=== PATIENT | female | born 1965 | race Caucasian/White ===

== ENCOUNTER → 2018-01-20 | Outpatient (CLI) | payer OTHER ==
--- NOTE | 2018-01-20 12:57 | WOMENS IMAGING REPORT ---
EXAM DESCRIPTION: BILAT SCREENING MAMMO W/CAD COMPLETED DATE/TIME: 01/20/2018 8:20 am REASON FOR STUDY: SCREENING MAMMO Z12.31 ENCNTR SCREEN MAMMOGRAM FOR MALIGNANT NEOPLASM OF [place] COMPARISON: 2014 TECHNIQUE: Standard craniocaudal and mediolateral oblique views of each breast recorded using digita l acquisition. LIMITATIONS: None. FINDINGS: No masses, calcifications or architectural distortion. No areas of suspicion. Read with the assistance of CAD. .[facility] - R2 Cenova Version 1.3 .[facility] Imaging - R2 Cenova Version 1.3 .[facility] - R2 Cenova Version 2.4 .[facility] [place] R2 Cenova Version 2.4 .[facility] - R2 Rfid Technician Version 9.2 IMPRESSION: NORMAL MAMMOGRAM. BIRADS 1. BREAST DENSITY: b. There are scattered areas of fibroglandular density. BIRAD: 1 NEGATIVE RECOMMENDATION: ROUTINE SCREENING COMMENT: The patient has been notified of the results by letter per SA requirements. Additional no tification policies are in place for contacting patient with suspicious or incomplete findings. Quality ID #[id number]: The [employer] recommends an annual screening mammogram for women aged 40 years or over. This facility utilizes a reminder system to ensure that all patients receive reminder letters, and/or direct phone calls for appointments. This includes reminders for routine scr eening mammograms, diagnostic mammograms, or other Breast Imaging Interventions when appropriate. Th is patient will be placed in the appropriate reminder system. The [employer] (ACR) has developed recommendations for screening MRI of the breast s in certain patient populations, to be used in conjunction with mammography. Breast MRI surveillanc e may be appropriate for women with more than 20% lifetime risk of developing breast cancer as deter mined by genetic testing, significant family history of the disease, or history of mantle radiation f or Hodgkins Disease. ACR Practice Guidelines 2008. TECHNICAL DOCUMENTATION: FINDING NUMBER: (1) ASSESSMENT: (1) JOB ID: [id number] [employer]- All Rights Reserved Reading location - IP/workstation name: [email or web address]
== END ==
LOC: WI 07:45
PROVIDERS: ATTEND Family Medicine
DX: Z12.31 Encounter for screening mammogram for malignant neoplasm of breast (principal)
CPT/HCPCS: 77067

== ENCOUNTER 2018-07-30 00:04 | Inpatient (IN) | payer OTHER ==
[2018-07-30] MEDS ORDERED: MORPHINE SULFATE 10 MG/ML INJ IV ONE (00:53)
[2018-07-30] MEDS ORDERED: NORMAL SALINE 1000 ML 1,000 ML IV ONE ×2 (00:53→00:58)
[2018-07-30] MEDS ORDERED: ONDANSETRON HCL INJ/PF 4 MG/2 ML SDV IV ONE (00:53)
--- NOTE | 2018-07-30 00:54 | ER Document Report ---
ED General - General Chief Complaint: Abdominal Pain Stated Complaint: SHOULDER/BACK PAIN Time Seen by Provider: 07/30/18 00:43 TRAVEL OUTSIDE OF THE [place] IN LAST 30 DAYS: No - HPI Patient complains to provider of: Abdominal pain Notes: Patient coming in today for right upper quadrant abdominal pain epigastric pain right shoulder blade pain. Patient states ongoing intermittently for a week. Is been evaluated by her primary care physician had H. pylori testing done EGD colonoscopy done approximately 1 year ago all been negative. Patient states recently just started back on her Nexium has only taken 2 doses. Patient also states that had a bowel movement in the last 4 days. Patient currently is on oxycodone prescribed by her primary care physician patient has a CT scan scheduled for 11:00 today however pain worse tonight therefore came to ER for further evaluation denies any nausea vomiting fever chills patient states that she still is passing gas. Approximately 1 year ago did have hysterectomy and a bladder sling performed. Patient does have a history of diabetes hypertension. - Related Data Allergies/Adverse Reactions: nortriptyline [Nortriptyline] Allergy (Verified 06/15/14 21:42) Past Medical History - Social History Smoking Status: Unknown if Ever Smoked Family History: Reviewed & Not Pertinent - Past Medical History Cardiac Medical History: Reports: Hx Hypercholesterolemia, Hx Hypertension Review of Systems - Review of Systems Constitutional: No symptoms reported EENT: No symptoms reported Cardiovascular: No symptoms reported Respiratory: No symptoms reported Gastrointestinal: Abdominal pain Genitourinary: No symptoms reported Female Genitourinary: No symptoms reported Musculoskeletal: No symptoms reported Skin: No symptoms reported Hematologic/Lymphatic: No symptoms reported Neurological/Psychological: No symptoms reported -: Yes All other systems reviewed and negative Physical Exam - Vital signs Vitals: Temp Pulse Resp BP Pulse Ox 97.6 F 86 18 185/77 H 97 07/30/18 00:12 07/30/18 00:12 07/30/18 00:12 07/30/18 00:12 07/30/18 00:12 Interpretation: Normal - General General appearance: Appears well, Alert - HEENT Head: Normocephalic, Atraumatic Eyes: Normal Pupils: PERRL - Respiratory Respiratory status: No respiratory distress Chest status: Nontender Breath sounds: Normal Chest palpation: Normal - Cardiovascular Rhythm: Regular Heart sounds: Normal auscultation Murmur: No - Abdominal Inspection: Normal Distension: No distension Bowel sounds: Normal Tenderness: Tender - Mild right upper quadrant epigastric tenderness no guarding or rebound. No: McBurney's point, Jackson's sign, Guarding, Rebound Organomegaly: No organomegaly - Back Back: Normal, Nontender - Extremities General upper extremity: Normal inspection, Nontender, Normal color, Normal ROM , Normal temperature General lower extremity: Normal inspection, Nontender, Normal color, Normal ROM , Normal temperature, Normal weight bearing. No: Светлана's sign - Neurological Neuro grossly intact: Yes Cognition: Normal Orientation: AAOx4 [place] Coma Scale Eye Opening: Spontaneous Randi Coma Scale Verbal: Oriented Randi Coma Scale Motor: Obeys Commands [place] Coma Scale Total: 15 Speech: Normal Motor strength normal: LUE, RUE, LLE, RLE Sensory: Normal - Psychological Associated symptoms: Normal affect, Normal mood - Skin Skin Temperature: Warm Skin Moisture: Dry Skin Color: Normal Course - Re-evaluation Re-evalutation: 07/30/18 00:57 Examination of the patient reveals right upper quadrant epigastric tenderness. History is concerning for possible gallbladder disease versus underlying gastritis. Because the patient's complaint of not having a bowel movement last 4 days we will also get a single view of the abdomen to look for stool burden. Ultrasound has been ordered we will go ahead and have the patient start drinking oral contrast 07/30/18 01:39 KUB the patient does show moderate stool burden. Patient tolerating oral contrast without difficulty 07/30/18 03:42 Workup is consistent with possible gallstone pancreatitis. Initially discussed case with the hospital staff requesting surgical condition. Discussed with the surgical list Dr. Perales requesting a CAT scan to go ahead and be performed. 07/30/18 06:04 CAT scans not show any other acute pathology other than cholelithiasis. Daughter still at bedside to evaluate the patient for admission. - Vital Signs Vital signs: Temp Pulse Resp BP Pulse Ox 97.6 F 86 18 185/77 H 97 07/30/18 00:12 07/30/18 00:12 07/30/18 00:12 07/30/18 00:12 07/30/18 00:12 - Laboratory Result Diagrams: 07/30/18 01:57 10 01:57 Laboratory results interpreted by me: 07/30/18 01:57 Glucose 171 H Alkaline Phosphatase 127 H Lipase 1790.2 H Discharge - Discharge Clinical Impression: Gallstone pancreatitis Condition: Good Disposition: ADMITTED INPATIENT Admitting Provider: Surgicalist - [facility] Admitted: Surgical Floor
--- NOTE | 2018-07-30 01:19 | RADIOLOGY REPORT (SQ) ---
EXAM DESCRIPTION: XR ABDOMEN 1 VIEW (KUB) COMPLETED DATE/TME: 07/30/2018 00:53 CLINICAL HISTORY: 53 years, Female, abd pain constipation RUQ pain COMPARISON: None. NUMBER OF VIEWS: One TECHNIQUE: AP view the abdomen LIMITATIONS: None. FINDINGS: Bowel gas pattern is normal. There is a moderate amount stool within the colon. There are no abnormal calcifications. Phleboliths are noted within the pelvis. There is no acute fracture. IMPRESSION: Nonobstructing bowel gas pattern 2010 [employer]- All Rights Reserved
[2018-07-30 02:22] LABS: ABSOLUTE EOSINOPHILS # (AUTO) 0.1 10^3/uL (0.0-0.6); ABSOLUTE LYMPHOCYTES (AUTO) 2.6 10^3/uL (0.5-4.7); ABSOLUTE MONOCYTES (AUTO) 0.6 10^3/uL (0.1-1.4); ABSOLUTE NEUT (AUTO) 4.5 10^3/uL (1.7-8.2); BASOPHILS % (AUTO) 0.5 % (0-2); EOSINOPHILS % (AUTO) 1.5 % (0-6); HEMATOCRIT 38.3 % (36.0-47.0); HEMOGLOBIN 13.4 g/dL (12.0-15.5); LYMPHOCYTES % (AUTO) 33.3 % (13-45); MEAN CORPUSCULAR HEMOGLOBIN 28.5 pg (27.0-33.4); MEAN CORPUSCULAR HGB CONC 35.1 g/dL (32.0-36.0); MEAN CORPUSCULAR VOLUME 81 fl (80-97); MONOCYTES % (AUTO) 7.1 % (3-13); PLATELET COUNT 441 10^3/uL (150-450); RED BLOOD COUNT 4.71 10^6/uL (3.72-5.28); RED CELL DISTRIBUTION WIDTH 12.7 % (11.5-14.0); SEGMENTED NEUTROPHILS % (AUTO) 57.6 % (42-78); TOTAL CELLS COUNTED % (AUTO) 100 %; WHITE BLOOD COUNT 7.8 10^3/uL (4.0-10.5)
[2018-07-30 02:34] LABS: ALANINE AMINOTRANSFERASE 26 U/L (9-52); ALBUMIN 3.8 g/dL (3.5-5.0); ALKALINE PHOSPHATASE 127 U/L (38-126); ANION GAP 12 (5-19); ASPARTATE AMINO TRANSFERASE 18 U/L (14-36); BILIRUBIN,DIRECT 0.2 mg/dL (0.0-0.4); BILIRUBIN,TOTAL 0.4 mg/dL (0.2-1.3); BLOOD UREA NITROGEN 10 mg/dL (7-20); CALCIUM 9.3 mg/dL (8.4-10.2); CARBON DIOXIDE 26 mmol/L (22-30); CHLORIDE 103 mmol/L (98-107); GLUCOSE 171 mg/dL (75-110); LIPASE 1790.2 U/L (23-300); POTASSIUM 4.1 mmol/L (3.6-5.0); SODIUM 140.9 mmol/L (137-145); TOTAL PROTEIN 7.5 g/dL (6.3-8.2)
[2018-07-30 02:42] LABS: APPEARANCE,URINE CLEAR; BILIRUBIN,URINE NEGATIVE (NEGATIVE); GLUCOSE, URINE NEGATIVE (NEGATIVE); KETONES,URINE NEGATIVE (NEGATIVE); LEUKOCYTE ESTERASE,URINE NEGATIVE (NEGATIVE); NITRITE,URINE NEGATIVE (NEGATIVE); PROTEIN,URINE NEGATIVE (NEGATIVE); URINE SPECIFIC GRAVITY 1.004; UROBILINOGEN,URINE NEGATIVE mg/dL (<2.0)
[2018-07-30 02:43] LABS: COLOR,URINE YELLOW
--- NOTE | 2018-07-30 03:03 | RADIOLOGY REPORT (SQ) ---
Ultrasound right upper quadrant on 07/30/2018 at 2:10 AM CLINICAL INDICATION: Right upper quadrant pain COMPARISON: None FINDINGS: Multiple sonographic images are obtained throughout the right upper quadrant, both transverse and sagittal images are obtained. Visualized pancreas is unremarkable. Visualized liver is homogeneous without focal lesion or evidence of intrahepatic biliary ductal dilatation. Common duct measures 5 mm which is within normal limits mitigating against obstruction of the biliary tree. There are multiple small echogenic foci with posterior shadowing in the gallbladder consistent with multiple gallstones. No gallbladder wall thickening or pericholecystic fluid is noted. Right kidney shows no hydronephrosis. No free fluid is noted in the right upper quadrant. IMPRESSION: Cholelithiasis, otherwise unremarkable.
--- NOTE | 2018-07-30 04:19 | RADIOLOGY REPORT (SQ) ---
EXAM DESCRIPTION: CT ABDOMEN PELVIS WITH IV CONTRAST COMPLETED DATE/TME: 07/30/2018 00:00 CLINICAL HISTORY: 53 years, Female, RUQ pain epigastric pain COMPARISON: None. TECHNIQUE: Axial CT images of the abdomen and pelvis were obtained after the administration of IV and oral contrast. DLP 1252 Images stored on PACS. All CT scanners at this facility use dose modulation, iterative reconstruction, and/or weight based dosing when appropriate to reduce radiation dose to as low as reasonably achievable (ALARA). [facility]: Dose Right [facility]: CareDose [facility]: Dose Right [facility]: Teradose 4D [facility]: [employer] Technologies LIMITATIONS: None. FINDINGS: The lung bases are clear. Cholelithiasis. The liver, pancreas, spleen, and adrenal glands are normal. There is a 2 mm nonobstructing stone within the right kidney. There is no evidence of hydronephrosis or hydroureter bilaterally. There is no intraperitoneal free air or fluid. There is no lymphadenopathy. The abdominal aorta is normal in caliber. The stomach and small bowel are unremarkable. The appendix is normal. The colon contains a moderate amount of stool. There are changes of a hysterectomy. There is a 3.2 x 3.3 cm left adnexal cyst. The urinary bladder is unremarkable. There are no lytic or blastic bone lesions. IMPRESSION: Cholelithiasis. Nonobstructing right-sided nephrolithiasis. Left adnexal cyst. Recommend further evaluation with a pelvic ultrasound TECHNICAL DOCUMENTATION: Quality ID # 436: Final reports with documentation of one or more dose reduction techniques (e.g., Automated exposure control, adjustment of the mA and/or kV according to patient size, use of iterative reconstruction technique) 2010 [employer]- All Rights Reserved
[2018-07-30] MEDS ORDERED: ONDANSETRON HCL INJ/PF 4 MG/2 ML SDV IV PRN ×2 (05:57→10:00)
[2018-07-30] MEDS ORDERED: DEXTROSE 40% GEL 15 GM TUBE PO PRN ×3 (05:57→11:30)
[2018-07-30] MEDS ORDERED: GLUCAGON,HUMAN RECOMB 1 MG INJ SUBCUT PRN (05:57)
[2018-07-30] MEDS ORDERED: DEXTROSE 50%-WATER 25 GM/50 ML DISP.SYRIN IV PRN ×2 (05:57)
[2018-07-30] MEDS ORDERED: HYDROMORPHONE HCL INJ/PF 2 MG/ML AMPULE IV PRN (06:03)
[2018-07-30] MEDS: NORMAL SALINE 1000 ML 1,000 ML IV PRN ×3 (07:00→21:20)
--- NOTE | 2018-07-30 07:39 | PDOC H&P ---
History of Present Illness Admission Date/PCP: 07/30/18 05:36 ALIS ZAPATA MD Patient complains of: Back pains and abdominal pains History of Present Illness: PENELOPE STANFORD is a 53 year old female who suddenly c/o right back pains radiating ro the upper abdomen a week ago associated with nausea. She took some leftover po narcotic whigh help her get some relief. She went to her PMD and was seen by CONTRACT ATTORNEY who told her she has muscle pains, She then went to the [facility] but they were so busy that she just went home or sent home after waiting several hours. Last night her pains got worse and went to ED. Past Medical History Cardiac Medical History: Reports: Hyperlipidema, Hypertension Endocrine Medical History: Reports: Diabetes Mellitus Type 2 Psychiatric Medical History: Reports: Depression Hematology: Reports: Anemia - intermittent periods Past Surgical History Past Surgical History: Reports: Hysterectomy Social History Smoking Status: Unknown if Ever Smoked - Advance Directive Resuscitation Status: Full Code Family History Family History: Reviewed & Not Pertinent Parental Family History Reviewed: Yes Children Family History Reviewed: No Sibling(s) Family History Reviewed.: Yes - all 6 siblings had gallbladder sugery and she is the last and 7th sibling Medication/Allergy Home Medications: Esomeprazole Magnesium [Nexium 24Hr] 40 mg PO DAILY 07/30/18 Liraglutide [Victoza 2-Victorino] 1.8 mg SQ WSUPPER 07/30/18 Lisinopril [Prinivil 10 mg Tablet] 10 mg PO DAILY 07/30/18 Metformin HCl [Metformin HCl ER] 500 mg PO BID 07/30/18 Allergies/Adverse Reactions: nortriptyline [Nortriptyline] Allergy (Verified 06/15/14 21:42) Review of Systems Constitutional: PRESENT: as per HPI, chills Eyes: PRESENT: other - no visual/hearing changes Cardiovascular: PRESENT: other - no chest pains/cough Gastrointestinal: PRESENT: abdominal pain, constipation - for 5 days now, nausea Genitourinary: PRESENT: other - no dysuria Musculoskeletal: PRESENT: back pain Neurological: PRESENT: other - no seizures Allergic/Immunologic: PRESENT: seasonal rhinorrhea Physical Exam Vital Signs: Temp Pulse Resp BP Pulse Ox 98.3 F 82 14 130/80 H 98 07/30/18 06:49 07/30/18 06:49 07/30/18 06:49 07/30/18 06:49 07/30/18 06:49 Intake & Output 07/29/18 07/30/18 07/31/18 06:59 06:59 06:59 Weight 67.1 kg General appearance: PRESENT: mild distress Head exam: PRESENT: atraumatic Eye exam: PRESENT: conjunctiva pink Mouth exam: PRESENT: moist Neck exam: PRESENT: full ROM Respiratory exam: PRESENT: clear to auscultation shanika Cardiovascular exam: PRESENT: RRR Pulses: PRESENT: normal radial pulses Vascular exam: PRESENT: normal capillary refill GI/Abdominal exam: PRESENT: soft, tenderness - upper abdomen Rectal exam: PRESENT: deferred Extremities exam: PRESENT: full ROM Musculoskeletal exam: PRESENT: ambulatory Neurological exam: PRESENT: alert, oriented to person, oriented to place, oriented to time, oriented to situation Psychiatric exam: PRESENT: appropriate affect Skin exam: PRESENT: normal color, warm Results Impressions: Abdomen/Pelvis CT 07/30/18 00:00 IMPRESSION: Cholelithiasis. Nonobstructing right-sided nephrolithiasis. Left adnexal cyst. Recommend further evaluation with a pelvic ultrasound TECHNICAL DOCUMENTATION: Quality ID # 436: Final reports with documentation of one or more dose reduction techniques (e.g., Automated exposure control, adjustment of the mA and/or kV according to patient size, use of iterative reconstruction technique) 2010 [employer]- All Rights Reserved Abdomen Ultrasound 07/30/18 00:52 IMPRESSION: Cholelithiasis, otherwise unremarkable. KUB X-Ray 07/30/18 00:53 IMPRESSION: Nonobstructing bowel gas pattern 2010 [employer]- All Rights Reserved Assessment & Plan - Time Time Spent: 30 to 50 Minutes - Inpatient Certification Medical Necessity: Need For IV Fluids, Need for Pain Control, Need for Surgery - Plan Summary Plan Summary: Hospitalist consult for DM Keep NPO Hydrate Pain mx Monitor labs Eventual Lap cecilia when lipase trending down and symptoms improving
[2018-07-30] MEDS: HYDROMORPHONE HCL INJ/PF 2 MG/ML AMPULE IV PRN (10:00)
[2018-07-30] MEDS ORDERED: KETOROLAC TROMETHAMINE INJ/PF 30 MG/1 ML SDV IV PRN (11:29)
[2018-07-30] MEDS ORDERED: DEXTROSE 50%-WATER SYRINGE 12.5 GM/25 ML DOSE IV PRN (11:30)
[2018-07-30] MEDS ORDERED: GLUCAGON,HUMAN RECOMB 1 MG INJ IM PRN (11:30)
[2018-07-30] MEDS ORDERED: DEXTROSE 50%-WATER SYRINGE 25 GM/50 ML DOSE IV PRN (11:30)
[2018-07-30] MEDS ORDERED: DEXTROSE 40% GEL 15 GM TUBE X 2 PO PRN (11:30)
[2018-07-30] MEDS ORDERED: INSULIN LISPRO 100 UNIT/ML 3 ML VIAL SUBCUT PRN (12:00)
[2018-07-30] MEDS ORDERED: INSULIN LISPRO 100 UNIT/ML 3 ML VIAL SUBCUT SCH (12:00)
[2018-07-30] MEDS: FAMOTIDINE INJ/PF 20 MG/2 ML SDV IV SCH ×2 (12:03→21:22)
--- NOTE | 2018-07-30 15:13 | PDOC CONSULTATION ---
Consultation Consult Date: 07/30/18 Attending physician:: LUIS CUMMINGS Consult reason:: Management of DM perioperatively History of Present Illness Admission Date/PCP: 07/30/18 05:36 ALIS ZAPATA MD History of Present Illness: PENELOPE STANFORD is a 53 year old female This patient presents to the emergency room with complaint of right back pain as well as left-sided pain with radiation to the back associated with nausea. This had been going on for about a week. She was seen in the emergency room last night and finally diagnosed with an acute pancreatic cholecystitis. Medical consultation is requested for management of her diabetes. Patient complaining of back pain as well as right upper quadrant pain which is minimally relieved with narcotics. She states that she actually felt better and had some relief when she took some Aleve. She states she is normally compliant with her Metformin which she takes as outpatient. As she is currently n.p.o. in hospital and her blood sugar is well controlled at less than 200. Past Medical History Cardiac Medical History: Reports: Hyperlipidema, Hypertension Endocrine Medical History: Reports: Diabetes Mellitus Type 2 Psychiatric Medical History: Reports: Depression Hematology: Reports: Anemia - intermittent periods Past Surgical History Past Surgical History: Reports: Hysterectomy Social History Information Source: Patient Smoking Status: Unknown if Ever Smoked Frequency of Alcohol Use: None Hx Recreational Drug Use: No Drugs: None Hx Prescription Drug Abuse: No - Advance Directive Resuscitation Status: Full Code Family History Family History: Malignancy Parental Family History Reviewed: Yes Children Family History Reviewed: Yes Sibling(s) Family History Reviewed.: Yes - Sister of pancreatic cancer Medication/Allergy Home Medications: Esomeprazole Magnesium [Nexium 24Hr] 40 mg PO DAILY 07/30/18 Liraglutide [Victoza 2-Victorino] 1.8 mg SQ WSUPPER 07/30/18 Lisinopril [Prinivil 10 mg Tablet] 10 mg PO DAILY 07/30/18 Metformin HCl [Metformin HCl ER] 500 mg PO BID 07/30/18 Allergies/Adverse Reactions: nortriptyline [Nortriptyline] Allergy (Verified 06/15/14 21:42) Review of Systems All systems: reviewed and no additional remarkable complaints except as stated Gastrointestinal: PRESENT: abdominal pain Physical Exam Vital Signs: Temp Pulse Resp BP Pulse Ox 98.1 F 85 16 149/86 H 99 07/30/18 12:01 07/30/18 12:01 07/30/18 12:01 07/30/18 12:01 07/30/18 12:01 Intake & Output 07/29/18 07/30/18 07/31/18 06:59 06:59 06:59 Weight 67.1 kg General appearance: PRESENT: no acute distress, well-developed, well-nourished Head exam: PRESENT: atraumatic, normocephalic Eye exam: PRESENT: conjunctiva pink, EOMI, PERRLA. ABSENT: scleral icterus Ear exam: PRESENT: normal external ear exam Mouth exam: PRESENT: moist, tongue midline Neck exam: PRESENT: full ROM. ABSENT: carotid bruit, JVD, lymphadenopathy, thyromegaly Cardiovascular exam: PRESENT: RRR. ABSENT: diastolic murmur, rubs, systolic murmur Pulses: PRESENT: normal dorsalis pedis pul, +2 pedal pulses bilateral Vascular exam: PRESENT: normal capillary refill GI/Abdominal exam: PRESENT: normal bowel sounds, soft, tenderness - RUQ and left side. ABSENT: distended, guarding, mass, organolmegaly, rebound Rectal exam: PRESENT: deferred Neurological exam: PRESENT: alert, awake, oriented to person, oriented to place , oriented to time, oriented to situation, CN II-XII grossly intact. ABSENT: motor sensory deficit Psychiatric exam: PRESENT: appropriate affect, normal mood. ABSENT: homicidal ideation, suicidal ideation Skin exam: PRESENT: dry, intact, warm. ABSENT: cyanosis, rash Results Laboratory Results: 07/30/18 07/30/18 01:57 11:31 Glucose 171 H POC Glucose 123 H Alkaline Phosphatase 127 H Lipase 1790.2 H 07/30/18 01:57 07/30/18 01:57 MCV 81 fl (80-97) 07/30/18 01:57 MCH 28.5 pg (27.0-33.4) 07/30/18 01:57 MCHC 35.1 g/dL (32.0-36.0) 07/30/18 01:57 RDW 12.7 % (11.5-14.0) 07/30/18 01:57 Seg Neutrophils % 57.6 % (42-78) 07/30/18 01:57 Lymphocytes % 33.3 % (13-45) 07/30/18 01:57 Monocytes % 7.1 % (3-13) 07/30/18 01:57 Eosinophils % 1.5 % (0-6) 07/30/18 01:57 Basophils % 0.5 % (0-2) 07/30/18 01:57 Absolute Neutrophils 4.5 10^3/uL (1.7-8.2) 07/30/18 01:57 Absolute Lymphocytes 2.6 10^3/uL (0.5-4.7) 07/30/18 01:57 Absolute Monocytes 0.6 10^3/uL (0.1-1.4) 07/30/18 01:57 Absolute Eosinophils 0.1 10^3/uL (0.0-0.6) 07/30/18 01:57 Absolute Basophils 0.0 10^3/uL (0.0-0.2) 07/30/18 01:57 Chloride 103 mmol/L (98-107) 07/30/18 01:57 Carbon Dioxide 26 mmol/L (22-30) 07/30/18 01:57 Anion Gap 12 (5-19) 07/30/18 01:57 Est GFR ( Amer) > 60 (>60) 07/30/18 01:57 Est GFR (Non-Af Amer) > 60 (>60) 07/30/18 01:57 Glucose 171 mg/dL (75-110) H 07/30/18 01:57 Lactic Acid 0.7 mmol/L (0.7-2.1) 07/30/18 01:57 Calcium 9.3 mg/dL (8.4-10.2) 07/30/18 01:57 Total Bilirubin 0.4 mg/dL (0.2-1.3) 07/30/18 01:57 AST 18 U/L (14-36) 07/30/18 01:57 ALT 26 U/L (9-52) 07/30/18 01:57 Alkaline Phosphatase 127 U/L (38-126) H 07/30/18 01:57 Total Protein 7.5 g/dL (6.3-8.2) 07/30/18 01:57 Albumin 3.8 g/dL (3.5-5.0) 07/30/18 01:57 Lipase 1790.2 U/L (23-300) H 07/30/18 01:57 Urine Color YELLOW 07/30/18 01:57 Urine Appearance CLEAR 07/30/18 01:57 Urine pH 6.0 (5.0-9.0) 07/30/18 01:57 Ur Specific [place] 1.004 07/30/18 01:57 Urine Protein NEGATIVE mg/dL (NEGATIVE) 07/30/18 01:57 Urine Glucose (UA) NEGATIVE mg/dL (NEGATIVE) 07/30/18 01:57 Urine Ketones NEGATIVE mg/dL (NEGATIVE) 07/30/18 01:57 Urine Blood NEGATIVE (NEGATIVE) 07/30/18 01:57 Urine Nitrite NEGATIVE (NEGATIVE) 07/30/18 01:57 Ur Leukocyte Esterase NEGATIVE (NEGATIVE) 07/30/18 01:57 Urine WBC (Auto) 0 /HPF 07/30/18 01:57 Impressions: Abdomen/Pelvis CT 07/30/18 00:00 IMPRESSION: Cholelithiasis. Nonobstructing right-sided nephrolithiasis. Left adnexal cyst. Recommend further evaluation with a pelvic ultrasound TECHNICAL DOCUMENTATION: Quality ID # 436: Final reports with documentation of one or more dose reduction techniques (e.g., Automated exposure control, adjustment of the mA and/or kV according to patient size, use of iterative reconstruction technique) 2010 [employer]- All Rights Reserved Abdomen Ultrasound 07/30/18 00:52 IMPRESSION: Cholelithiasis, otherwise unremarkable. KUB X-Ray 07/30/18 00:53 IMPRESSION: Nonobstructing bowel gas pattern 2010 [employer]- All Rights Reserved Assessment & Plan - Diagnosis (1) Gallstone pancreatitis Is this a current diagnosis for this admission?: Yes Plan: Further management by surgery (2) Diabetes mellitus Qualifiers: Diabetes mellitus type: type 2 Diabetes mellitus computer terminal operator insulin use: without computer terminal operator use Diabetes mellitus complication status: without complication Qualified Code(s): E11.9 - Type 2 diabetes mellitus without complications Is this a current diagnosis for this admission?: Yes Plan: We will hold metformin and Victoza. Patient is n.p.o. and so we will place on sliding scale insulin with Humalog coverage because she also received contrast today metformin should be held for 48 hours at the minimal prior to restarting (3) Hypertension Is this a current diagnosis for this admission?: Yes Plan: Blood pressure is relatively well controlled on lisinopril - Inpatient Certification Based on my medical assessment, after consideration of the patient's comorbidities, presenting symptoms, or acuity I expect that the services needed warrant INPATIENT care.: Yes Medical Necessity: Need for Surgery
[2018-07-30] MEDS: LISINOPRIL 10 MG TABLET PO SCH (15:25)
[2018-07-30] MEDS: KETOROLAC TROMETHAMINE INJ/PF 30 MG/1 ML SDV IV PRN ×2 (16:57→23:00)
[2018-07-31] MEDS: NORMAL SALINE 1000 ML 1,000 ML IV PRN (04:16)
[2018-07-31 05:24] LABS: ABSOLUTE EOSINOPHILS # (AUTO) 0.1 10^3/uL (0.0-0.6); ABSOLUTE LYMPHOCYTES (AUTO) 2.3 10^3/uL (0.5-4.7); ABSOLUTE MONOCYTES (AUTO) 0.4 10^3/uL (0.1-1.4); BASOPHILS % (AUTO) 0.5 % (0-2); EOSINOPHILS % (AUTO) 1.6 % (0-6); HEMATOCRIT 37.3 % (36.0-47.0); HEMOGLOBIN 12.8 g/dL (12.0-15.5); LYMPHOCYTES % (AUTO) 33.6 % (13-45); MEAN CORPUSCULAR HEMOGLOBIN 28.2 pg (27.0-33.4); MEAN CORPUSCULAR HGB CONC 34.2 g/dL (32.0-36.0); MEAN CORPUSCULAR VOLUME 83 fl (80-97); MONOCYTES % (AUTO) 5.8 % (3-13); PLATELET COUNT 453 10^3/uL (150-450); RED BLOOD COUNT 4.52 10^6/uL (3.72-5.28); RED CELL DISTRIBUTION WIDTH 12.8 % (11.5-14.0); SEGMENTED NEUTROPHILS % (AUTO) 58.5 % (42-78); TOTAL CELLS COUNTED % (AUTO) 100 %; WHITE BLOOD COUNT 6.8 10^3/uL (4.0-10.5)
[2018-07-31 05:45] LABS: ALANINE AMINOTRANSFERASE 28 U/L (9-52); ALBUMIN 3.4 g/dL (3.5-5.0); ALKALINE PHOSPHATASE 123 U/L (38-126); ANION GAP 11 (5-19); ASPARTATE AMINO TRANSFERASE 13 U/L (14-36); BILIRUBIN,DIRECT 0.1 mg/dL (0.0-0.4); BILIRUBIN,TOTAL 0.5 mg/dL (0.2-1.3); BLOOD UREA NITROGEN 4 mg/dL (7-20); CALCIUM 8.9 mg/dL (8.4-10.2); CARBON DIOXIDE 22 mmol/L (22-30); CHLORIDE 108 mmol/L (98-107); GLUCOSE 137 mg/dL (75-110); LIPASE 975.6 U/L (23-300); POTASSIUM 4.8 mmol/L (3.6-5.0); SODIUM 141.2 mmol/L (137-145); TOTAL PROTEIN 6.3 g/dL (6.3-8.2)
[2018-07-31] MEDS: FAMOTIDINE INJ/PF 20 MG/2 ML SDV IV SCH ×2 (09:30→21:51)
[2018-07-31] MEDS: LISINOPRIL 10 MG TABLET PO SCH (09:30)
[2018-07-31] MEDS ORDERED: CEFAZOLIN 1 GM/D5W RTU 1 GM/50 ML RTUPB IV SCH ×2 (10:15→14:00)
--- NOTE | 2018-07-31 10:18 | PDOC PROGRESS REPORT ---
Subjective Progress Note for:: 07/31/18 Subjective:: Patient has no complaints; reports her urine is dark and foul-smelling. She is in the chair. She has been n.p.o. Reason For Visit: GALLSTONE PANCREATITIS,CHOLELITHIASIS, NON Physical Exam Vital Signs: Temp Pulse Resp BP Pulse Ox 97.6 F 70 16 128/70 H 100 07/31/18 09:01 07/31/18 09:01 07/31/18 09:01 07/31/18 09:01 07/31/18 09:01 Intake & Output 07/30/18 07/31/18 08/01/18 06:59 06:59 06:59 Intake Total 3000 Output Total 2100 Balance 900 Weight 67.1 kg 70.1 kg General appearance: PRESENT: no acute distress GI/Abdominal exam: PRESENT: other - Soft, nontender no peritoneal signs no rigidity frankly benign abdomen; scars consistent with previous surgery. Results Laboratory Results: 07/31/18 04:15 07/31/18 04:15 07/31/18 07/31/18 04:15 04:15 WBC 6.8 RBC 4.52 Hgb 12.8 Hct 37.3 MCV 83 MCH 28.2 MCHC 34.2 RDW 12.8 Plt Count 453 H Seg Neutrophils % 58.5 Lymphocytes % 33.6 Monocytes % 5.8 Eosinophils % 1.6 Basophils % 0.5 Absolute Neutrophils 4.0 Absolute Lymphocytes 2.3 Absolute Monocytes 0.4 Absolute Eosinophils 0.1 Absolute Basophils 0.0 Sodium 141.2 Potassium 4.8 Chloride 108 H Carbon Dioxide 22 Anion Gap 11 BUN 4 L Creatinine 0.39 L Est GFR ( Amer) > 60 Est GFR (Non-Af Amer) > 60 Glucose 137 H Calcium 8.9 Total Bilirubin 0.5 AST 13 L ALT 28 Alkaline Phosphatase 123 Total Protein 6.3 Albumin 3.4 L Lipase 975.6 H Impressions: Abdomen/Pelvis CT 07/30/18 00:00 IMPRESSION: Cholelithiasis. Nonobstructing right-sided nephrolithiasis. Left adnexal cyst. Recommend further evaluation with a pelvic ultrasound TECHNICAL DOCUMENTATION: Quality ID # 436: Final reports with documentation of one or more dose reduction techniques (e.g., Automated exposure control, adjustment of the mA and/or kV according to patient size, use of iterative reconstruction technique) 2010 [employer]- All Rights Reserved Abdomen Ultrasound 07/30/18 00:52 IMPRESSION: Cholelithiasis, otherwise unremarkable. KUB X-Ray 07/30/18 00:53 IMPRESSION: Nonobstructing bowel gas pattern 2010 [facility] All Rights Reserved Assessment & Plan - Diagnosis (1) Gallstone pancreatitis Is this a current diagnosis for this admission?: Yes Plan: Impression: Uncomplicated gallstone pancreatitis; clinically patient appears to passed a stone given her absence of symptoms currently, and abdomen, and improvement in her laboratory profile including lipase level down to 940. Recommend patients: 1. I have offered the patient interval laparoscopic, possible open cholecystectomy, with intraoperative cholangiography, [facility], 1 hour, general anesthesia, there will explanation of the rationale, mechanics of the operation, as well as risks benefits and alternatives including bleeding , infection, bile duct injury, bile leak, retained common bile duct stone. Expresses her understanding and agrees to proceed. 2. I also explained to the patient if she is found to have a retained common duct stone on intraoperative cholangiography, she may require postoperative ERCP which may or may not be performed this weekend, and may require transfer from [facility]. Statistically the likelihood of such a scenario is low to moderate. Therefore I believe it is worthwhile to proceed with laparoscopic cholecystectomy first. 3. We will increase IV fluids. I have reviewed her imaging studies and she does not appear to have geographic evidence of significant pancreatitis. (2) Diabetes mellitus Qualifiers: Diabetes mellitus type: type 2 Diabetes mellitus longterm insulin use: without termite renewal inspector use Diabetes mellitus complication status: without complication Qualified Code(s): E11.9 - Type 2 diabetes mellitus without complications Is this a current diagnosis for this admission?: Yes (3) Hypertension Is this a current diagnosis for this admission?: Yes
[2018-07-31] MEDS: RINGERS SOLUTION,LACTATED 1,000 ML IV PRN ×3 (10:30→22:47)
[2018-07-31] MEDS: KETOROLAC TROMETHAMINE INJ/PF 30 MG/1 ML SDV IV PRN ×2 (11:13→17:19)
[2018-07-31] MEDS ORDERED: PROPOFOL INJ 200 MG/20 ML VIAL IV ONE (12:56)
[2018-07-31] MEDS ORDERED: HYDROMORPHONE HCL INJ/PF 2 MG/ML AMPULE ONE (12:56)
[2018-07-31] MEDS ORDERED: FENTANYL CITRATE INJ/PF 250 MCG/5 ML AMPULE ONE (12:56)
[2018-07-31] MEDS ORDERED: DEXAMETHASONE SOD PHOSPHATE INJ 4 MG/1 ML VIAL ONE (12:56)
[2018-07-31] MEDS ORDERED: MIDAZOLAM 2 MG/2 ML INJ ONE (12:56)
[2018-07-31] MEDS ORDERED: ONDANSETRON HCL INJ/PF 4 MG/2 ML SDV ONE (12:56)
[2018-07-31] MEDS ORDERED: BUPIVACAINE HCL 0.5 % INJ/PF 30 ML SDV ONE (13:04)
[2018-07-31] MEDS ORDERED: GLYCOPYRROLATE 1 MG/5 ML SYRINGE ONE (13:38)
[2018-07-31] MEDS ORDERED: NEOSTIGMINE METHYLSULFATE 10 MG/10 ML VIAL ONE (13:38)
[2018-07-31] MEDS ORDERED: PROMETHAZINE HCL INJ 25 MG/1 ML VIAL IV PRN (13:40)
[2018-07-31] MEDS ORDERED: DIPHENHYDRAMINE HCL 50 MG/ML VIAL IV PRN (13:40)
[2018-07-31] MEDS ORDERED: FENTANYL CITRATE INJ/PF 100 MCG/2 ML AMPUL IV PRN ×3 (13:40)
[2018-07-31] MEDS ORDERED: MEPERIDINE HCL/PF INJ 25 MG/1 ML DISP.SYRIN IV PRN (13:40)
[2018-07-31] MEDS ORDERED: KETOROLAC TROMETHAMINE 10 MG TABLET PO PRN (14:26)
--- NOTE | 2018-07-31 14:42 | Operative Report ---
Operative Report DATE OF SURGERY: 07/31/18 PREOPERATIVE DIAGNOSIS: Gallstone pancreatitis POSTOPERATIVE DIAGNOSIS: Same with unremarkable intraoperative cholangiogram OPERATION: 1. Laparoscopic cholecystectomy. 2. Intraoperative cholangiography. 3. Interpretation of intraoperative cholangiography SURGEON: AUNDREA STANLEY ANESTHESIA: GA TISSUE REMOVED OR ALTERED: 1 gallbladder with contents COMPLICATIONS: None ESTIMATED BLOOD LOSS: Scant INTRAOPERATIVE FINDINGS: See below PROCEDURE: After obtaining informed consent, the patient was taken to the operating room. General Anesthesia was induced; the arms were extended, and the abdomen was exposed, and prepped and draped in a sterile fashion. Instrumentation was set up for laparoscopic cholecystectomy. Surgical plan and surgical timeout were conducted. A vertical incision was made above the umbilicus, and a verres needle was inserted uneventfully into the peritoneal cavity. Pneumoperitoneum was established. The verres needle was removed and a 5 mm trocar was inserted and a 5 mm flexible laparoscope was inserted. Visualization of the peritoneal cavity confirmed safe uneventful entry. Under direct visualization 3 additional 5 mm ports were established, one in the subxiphoid position and second in the subcostal position. Visualization of the hepatobiliary anatomy revealed no anatomic variations. Graspers were placed on the gallbladder fundus and infundibulum, and adhesions between the gallbladder and the gastroduodenal area taken down using hook and once dissection under excellent visualization. The triangle of Calot was now dissected open. Cystic artery was in his usual location. It was dissected out elegantly, surrounded with a right angle clamp, clipped twice proximally once distally divided with scissors. We now opened the triangle liberally dividing the attachments between the infundibulum of the gallbladder the plate of the liver cystic duct. Photos were taken. The node of Calot was also swept medially and clipped with a small clip recruitment internship. We now brought onto the field a cutaneous cholangiogram catheter. A small nevin was made in the skin in the subcostal area, catheter introducer were threaded through the abdominal wall, introducer removed, and syringes with saline and Isovue contrast attached. A clip was applied and the cystic duct at the neck of the gallbladder. An opening was made in the cystic duct with laparoscopic ruddy, and the cholangiogram catheter was threaded approximately a centimeter and half into the cystic duct. We level the patient now, and proceeded to infuse approximately 10 cc of Isovue contrast. Real-time cholangiography was performed with portable C arm. This revealed immediate egress of contrast into the duodenum, with complete visualization of the intra-and extrahepatic biliary tree. There appeared to be no leak, no apparent filling defects within the lumen of the bile ducts, and grossly normal bile duct anatomy. We felt this was interpreted as a normal cholangiogram. We returned the peritoneal cavity removed the cholangiogram clip, and catheter, and divided the cystic duct entirely leaving the cystic duct stump open to decompress. We now remove the gallbladder using hook cautery dissection and brought the final specimen out of the patient is a supraumbilical port site without difficulty. We returned the peritoneal cavity and secured the cystic duct with a single application of a 0 PDS Endoloop. Conclusion photos were taken. We checked for bile leak and there was none. The peritoneal cavity was irrigated out in the right upper quadrant of any previously mobile. There were no spilled gallstones. We leveled the patient now and returned to the peritoneal cavity check for bleeding, and evidence of bile leak, and there was none. We Confirmed satisfactory placement of clips on cystic duct and cystic artery were secured . At this point we felt the operation was complete. The subcutaneous tissue was then anesthetized with quarter percent Marcaine Sponge and needle counts are correct. The supraumbilical port site fascial defect was closed with a 0 Vicryl suture; all ports removed under direct visualization pneumoperitoneum evacuated, and 5 mm port wounds closed with 3-0 Vicryl suture, benzoin and Steri -Strips. The patient was extubated, and taken to the recovery room in stable condition.
[2018-07-31] MEDS: HYDROMORPHONE HCL INJ/PF 2 MG/ML AMPULE IV PRN (15:59)
--- NOTE | 2018-07-31 16:16 | PDOC PROGRESS REPORT ---
Subjective Progress Note for:: 07/31/18 Subjective:: I saw the patient preop today. Her pain was much improved. She did not have headache or vision changes. No chest pain or difficulty breathing. She had lots of questions related to the surgery and recovery. She has been moving her bowels. No dysuria. No fevers or chills. No nausea or vomiting. Reason For Visit: GALLSTONE PANCREATITIS,CHOLELITHIASIS, NON Physical Exam Vital Signs: Temp Pulse Resp BP Pulse Ox 98.3 F 73 16 155/83 H 96 07/31/18 15:25 07/31/18 15:25 07/31/18 15:25 07/31/18 15:25 07/31/18 15:25 Intake & Output 07/30/18 07/31/18 08/01/18 06:59 06:59 06:59 Intake Total 3000 2250 Output Total 2100 31 Balance 900 2219 Weight 67.1 kg 70.1 kg General appearance: PRESENT: no acute distress, obese Head exam: PRESENT: atraumatic, normocephalic Eye exam: PRESENT: EOMI. ABSENT: conjunctival injection, scleral icterus Ear exam: PRESENT: normal external ear exam Mouth exam: PRESENT: moist, tongue midline Respiratory exam: PRESENT: clear to auscultation shanika, unlabored. ABSENT: rales , rhonchi, wheezes Cardiovascular exam: PRESENT: RRR. ABSENT: systolic murmur Pulses: PRESENT: normal radial pulses GI/Abdominal exam: PRESENT: hyperactive bowel sounds, soft, tenderness. ABSENT : distended, firm, guarding Rectal exam: PRESENT: deferred Gentrourinary exam: ABSENT: indwelling catheter Extremities exam: ABSENT: pedal edema Neurological exam: PRESENT: alert, awake, oriented to person, oriented to place , oriented to situation, CN II-XII grossly intact Psychiatric exam: PRESENT: appropriate affect. ABSENT: anxious Skin exam: PRESENT: dry, intact, warm. ABSENT: jaundice Results Laboratory Results: 07/31/18 04:15 07/31/18 04:15 07/31/18 07/31/18 04:15 04:15 WBC 6.8 RBC 4.52 Hgb 12.8 Hct 37.3 MCV 83 MCH 28.2 MCHC 34.2 RDW 12.8 Plt Count 453 H Seg Neutrophils % 58.5 Lymphocytes % 33.6 Monocytes % 5.8 Eosinophils % 1.6 Basophils % 0.5 Absolute Neutrophils 4.0 Absolute Lymphocytes 2.3 Absolute Monocytes 0.4 Absolute Eosinophils 0.1 Absolute Basophils 0.0 Sodium 141.2 Potassium 4.8 Chloride 108 H Carbon Dioxide 22 Anion Gap 11 BUN 4 L Creatinine 0.39 L Est GFR ( Amer) > 60 Est GFR (Non-Af Amer) > 60 Glucose 137 H Calcium 8.9 Total Bilirubin 0.5 AST 13 L ALT 28 Alkaline Phosphatase 123 Total Protein 6.3 Albumin 3.4 L Lipase 975.6 H Impressions: Abdomen/Pelvis CT 07/30/18 00:00 IMPRESSION: Cholelithiasis. Nonobstructing right-sided nephrolithiasis. Left adnexal cyst. Recommend further evaluation with a pelvic ultrasound TECHNICAL DOCUMENTATION: Quality ID # 436: Final reports with documentation of one or more dose reduction techniques (e.g., Automated exposure control, adjustment of the mA and/or kV according to patient size, use of iterative reconstruction technique) 2010 [employer]- All Rights Reserved Abdomen Ultrasound 07/30/18 00:52 IMPRESSION: Cholelithiasis, otherwise unremarkable. KUB X-Ray 07/30/18 00:53 IMPRESSION: Nonobstructing bowel gas pattern 2010 [employer]- All Rights Reserved Assessment & Plan - Diagnosis (1) Diabetes mellitus Qualifiers: Diabetes mellitus type: type 2 Diabetes mellitus joint terminal attack controller insulin use: without longterm use Diabetes mellitus complication status: without complication Qualified Code(s): E11.9 - Type 2 diabetes mellitus without complications Is this a current diagnosis for this admission?: Yes Plan: Blood sugars are relatively well controlled with sliding scale short acting insulin alone. Will hope to convert her back to her Victoza and metformin on discharge. We will continue with current plan and add long-acting and pre-meal insulin if indicated. (2) Gallstone pancreatitis Is this a current diagnosis for this admission?: Yes Plan: She has successfully undergone a cholecystectomy with unremarkable intra- angiogram. (3) Hypertension Is this a current diagnosis for this admission?: Yes Plan: Preoperatively her blood pressure was relatively well controlled on lisinopril 10 mg daily. Given pain and the anxiety of upcoming surgery I think slight elevation in the blood pressure was to be expected. Now she is postop and blood pressure is showing systolic in the 150s. She is probably having some postoperative pain. We will monitor closely and up titrate her antihypertensive if indicated. - Time Time Spent with patient: 25-34 minutes Medications reviewed and adjusted accordingly: Yes Anticipated discharge: Home - Inpatient Certification Based on my medical assessment, after consideration of the patient's comorbidities, presenting symptoms, or acuity I expect that the services needed warrant INPATIENT care.: Yes I certify that my determination is in accordance with my understanding of Medicare's requirements for reasonable and necessary INPATIENT services [42 CFR 412.3e].: Yes Medical Necessity: Significant Comorbidiites Make Outpatient Treatment Too Risky , Need Close Monitoring Due to Risk of Patient Decompensation, Need for Pain Control, Risk of Complication if Not Cared For in Hospital
[2018-07-31] MEDS: CEFAZOLIN 1 GM/D5W RTU 1 GM/50 ML RTUPB IV SCH (17:19)
--- NOTE | 2018-07-31 20:48 | EKG REPORT ---
SEVERITY:- NORMAL ECG - SINUS RHYTHM : Confirmed by: Eleanor Rivera MD 31-Jul-2018 20:48:01
--- NOTE | 2018-07-31 20:55 | RADIOLOGY REPORT (SQ) ---
EXAM DESCRIPTION: CHOLANGIOGRAM OPERATIVE COMPLETED DATE/TIME: 07/31/2018 3:03 pm REASON FOR STUDY: CHOLECYSTECTOMY LAAROSCOPIC INTRAOPERATIVE CHOLANGIOGRAM COMPARISON: None. FLUOROSCOPY TIME: Less than 1 second reported. 4 images saved to PACS. TECHNIQUE: 4 images were obtained from an intraoperative cholangiogram. LIMITATIONS: None. FINDINGS: There is opacification of the bile ducts, cystic duct remnants and second portion of the d uodenum without evidence of fixed filling defect or significant extravasation. IMPRESSION: INTRAOPERATIVE CHOLANGIOGRAM. COMMENT: Quality ID 145: Final reports for procedures using fluoroscopy that document radiation exp osure indices, or exposure time and number of fluorographic images (if radiation exposure indices are not available) TECHNICAL DOCUMENTATION: JOB ID: [id number] [employer]- All Rights Reserved Reading location - IP/workstation name: [email or web address]
[2018-08-01] MEDS: KETOROLAC TROMETHAMINE INJ/PF 30 MG/1 ML SDV IV PRN ×2 (00:06→06:44)
[2018-08-01] MEDS: CEFAZOLIN 1 GM/D5W RTU 1 GM/50 ML RTUPB IV SCH ×2 (02:34→09:18)
[2018-08-01] MEDS: RINGERS SOLUTION,LACTATED 1,000 ML IV PRN (05:39)
[2018-08-01 06:05] LABS: ANION GAP 11 (5-19); BLOOD UREA NITROGEN 4 mg/dL (7-20); CALCIUM 8.8 mg/dL (8.4-10.2); CARBON DIOXIDE 17 mmol/L (22-30); CHLORIDE 111 mmol/L (98-107); GLUCOSE 131 mg/dL (75-110); POTASSIUM 5.1 mmol/L (3.6-5.0); SODIUM 138.6 mmol/L (137-145)
[2018-08-01 07:21] VITALS: BP 140/81
[2018-08-01] MEDS: LISINOPRIL 10 MG TABLET PO SCH (09:17)
[2018-08-01] MEDS: FAMOTIDINE INJ/PF 20 MG/2 ML SDV IV SCH (09:18)
--- NOTE | 2018-08-01 11:20 | Progress Note ---
Provider Note Provider Note: This 53 year old woman with gallstone pancreatitis and s/p cholecystectomy was discharged before I saw her this am. Hospitalist was consulted for BP and diabetes management. Per nursing staff patient was doing and feelign very well this am, walking around halls, eating, no complaints. It appears that on DC it is recommend that she continue her home meds. Based on BP this am I would have recommend increase in lisinopril dose. Most importantly at this point she should see her primary care doctor for close followup and BP check within 5 days after DC.
--- NOTE | 2018-08-02 03:51 | DISCHARGE SUMMARY E ---
Discharge Summary NAME: PENELOPE STANFORD : 1965 AGE: 53Y ADMITTED: 07/30/2018 DISCHARGED: 08/01/2018 REASON FOR ADMISSION: Abdominal pain. SUMMARY OF HOSPITALIZATION: The patient is a 53-year-old white female who was admitted to the surgical service for abdominal pain felt secondary to cholelithiasis. This was demonstrated on gallbladder ultrasonography. She had elevation in her lipase level and clinically was felt to have findings consistent with gallstone pancreatitis. The patient's lipase level diminished from 1790 to 975 overnight. The midday of 07/31/2018, the patient was taken to the operating room by Dr. Aiken, where she underwent laparoscopic cholecystectomy with intraoperative cholangiography. The cholangiogram was interpreted as normal. She tolerated the procedure well. She was kept overnight and was discharged home in the speech therapist early intervention of 08/01/2018. FINAL DIAGNOSIS: Symptomatic cholelithiasis with cholecystitis and mild pancreatitis, status post laparoscopic cholecystectomy with intraoperative cholangiography by Dr. Aiken. DISPOSITION: The patient was discharged home in the care of her family. Followup with [facility] in 1-2 weeks. Resume preoperative medications, diet, and activity. DICTATING PHYSICIAN: AUNDREA AIKEN M.D. [id number] PHY#: [id number] ID: [id number] JOB#: [id number] ACCT: [id number] cc:AUNDREA AIKEN M.D. [facility],
== END 2018-08-01 09:22 | disposition home or self-care (01) | DRG 417 ==
LOC: ER 00:04 → EH 05:36 → 4S 06:45
PROVIDERS: ADMIT Surgery; ATTEND Surgery
PROC: BF101ZZ Fluoroscopy of Bile Ducts using Low Osmolar Contrast (ICD-10-PCS; 2018-07-31)
PROC: 0FT44ZZ Resection of Gallbladder, Percutaneous Endoscopic Approach (ICD-10-PCS; principal; 2018-07-31 14:00)
DX: K80.10 Calculus of gallbladder with chronic cholecystitis without obstruction (principal); K85.10 Biliary acute pancreatitis without necrosis or infection; E11.8 Type 2 diabetes mellitus with unspecified complications; I10 Essential (primary) hypertension; E78.5 Hyperlipidemia, unspecified
CPT/HCPCS: 36415; 74018; 74177; 74300; 76705; 790; 80048; 80053; 81001; 82962; 83605; 83690; 84132; 85025; 88304; 93005; 93010; 96361; 96374; 96375; 99285; J0690; J1100; J1170; J1885; J2250; J2270; J2405; J2704; J3010; J3490; J7030; J7120; Q9967; S0028

== ENCOUNTER → 2019-05-05 | Outpatient (CLI) | payer OTHER ==
--- NOTE | 2019-05-05 15:41 | WOMENS IMAGING REPORT ---
EXAM DESCRIPTION: BILAT SCREENING MAMMO W/CAD COMPLETED DATE/TIME: 05/05/2019 9:08 am REASON FOR STUDY: Z12.31 ENCOUNTER FOR SCREENING MAMMOGRAM FOR MALIGNANT NEOPLASM OF BREAST Z12.31 ENCNTR SCREEN MAMMOGRAM FOR MALIGNANT NEOPLASM OF [place] COMPARISON: 2014, 2017 EXAM PARAMETERS: Standard craniocaudal and mediolateral oblique views of each breast recorded using digital acquisition. Read with the assistance of CAD. .[facility] - [employer] Evaporator Supervisor Version 9.2 LIMITATIONS: None. FINDINGS: No suspicious masses, suspicious calcifications or architectural distortion. No areas of c oncern. IMPRESSION: Negative MAMMOGRAM. BIRADS 1 BREAST DENSITY: b. There are scattered areas of fibroglandular density. BIRAD: ASSESSMENT: 1 NEGATIVE RECOMMENDATION: ROUTINE SCREENING COMMENT: The patient has been notified of the results by letter per MQSA requirements. Additional no tification policies are in place for contacting patient with suspicious or incomplete findings. Quality ID #225: The [employer] recommends an annual screening mammogram for women aged 40 years or over. This facility utilizes a reminder system to ensure that all patients receive reminder letters, and/or direct phone calls for appointments. This includes reminders for routine scr eening mammograms, diagnostic mammograms, or other Breast Imaging Interventions when appropriate. Th is patient will be placed in the appropriate reminder system. TECHNICAL DOCUMENTATION: FINDING NUMBER: (1) ASSESSMENT: (1) JOB ID: [id number] [employer]- All Rights Reserved Reading location - IP/workstation name: [email or web address]
== END ==
LOC: WI 08:24
PROVIDERS: ATTEND Family Medicine
DX: Z12.31 Encounter for screening mammogram for malignant neoplasm of breast (principal)
CPT/HCPCS: 77067